=== PATIENT | male | born 1965 ===

== ENCOUNTER → 2020-05-25 08:15 | Outpatient (CLI) | payer OTHER | END | disposition home or self-care (01) | LOC: LAB 08:15 | PROVIDERS: ATTEND Orthopaedic Surgery | DX: D68.8 Other specified coagulation defects (principal); M17.12 Unilateral primary osteoarthritis, left knee ==

== ENCOUNTER 2020-05-31 08:14 | Outpatient (CLI) | payer OTHER | END 2020-05-31 08:27 | disposition home or self-care (01) | LOC: RAD 08:14 | PROVIDERS: ATTEND Orthopaedic Surgery | DX: M17.12 Unilateral primary osteoarthritis, left knee (principal) ==

== ENCOUNTER 2020-06-02 09:30 | Inpatient (IN) | payer OTHER ==
[~2020-06-02] VITALS: Ht 50.8 cm; Wt 102.1 kg
[2020-06-08] MEDS ORDERED: ULTRAM50 MG PO (13:35)
[2020-06-08] MEDS ORDERED: NORFLEX100MG PO (13:36)
[2020-06-10] MEDS ORDERED: CIPRO500 MG PO (06:48)
[2020-06-10] MEDS ORDERED: PERCOCET 5-3251 EACH PO (06:48)
[2020-06-10] MEDS ORDERED: ELIQUIS2.5 MG PO (06:48)
== END 2020-06-10 10:14 | DRG 470 ==
LOC: SURG 06-07 06:00 → O/R 06-07 06:00 → SURH 06-07 06:00 → O/R 06-07 07:00 → SURH 06-07 10:57 → SURG 06-08 00:55 → SURH 06-08 01:20 → SURG 06-08 08:22
PROVIDERS: ADMIT Orthopaedic Surgery; ATTEND Orthopaedic Surgery
PROC: 0SRD0J9 Replacement of Left Knee Joint with Synthetic Substitute, Cemented, Open Approach (ICD-10-PCS; principal; 2020-06-07 07:00)
DX: M17.12 Unilateral primary osteoarthritis, left knee (principal); D62 Acute posthemorrhagic anemia; E66.9 Obesity, unspecified; Z20.828 Contact with and (suspected) exposure to other viral communicable diseases